=== PATIENT | male | born 1965 | race Caucasian/White ===

== ENCOUNTER 2016-08-24 15:51 | Emergency (ER) | payer OTHER ==
[~2016-08-24] VITALS: Ht 167.6 cm; Wt 84.0 kg
[~2016-08-24 15:51] MED LIST: OMEP20TA39 PO
[2016-08-24 15:57] VITALS: BP 118/78; PULSE 94; RESP 16; TEMP 98.4; O2SAT 99
[2016-08-24] MEDS ORDERED: OMEP40CA2 PO (16:19)
[2016-08-24] MEDS ORDERED: DEXAMETHASONE SOD PHOS 20 MG/5 ML VIAL IM ONE (16:45)
[2016-08-24] MEDS ORDERED: KETOROLAC TROMETHAMINE 60 MG/2 ML (IM) VIAL IM ONE (16:45)
--- NOTE | 2016-08-24 16:46 | PD ---
HPI Chief Complaint: Musculoskeletal Complaint Time Seen by Provider: 16:44 Travel History International Travel<30 days: Yes Contact w/Intl Traveler<30days: Yes Name of Country Traveled to: [place] Traveled to known affect area: No History of Present Illness HPI 51-year-old male presents the emergency department with 3 week history of progressively worsening right shoulder pain and stiffness. Patient denies any specific injury. Patient is a retired [employer]. Patient denies numbness, tingling, neck pain, or weakness in the right hand or wrist. Patient has been trying ibuprofen without much improvement. He states now the pain is 8 /10 especially with any movement. He describes it as sharp achy pain. He has no known drug allergies. PFSH Past Medical History Arthritis: Yes Autoimmune Disease: No Blood Disorders: No Cancer: No Cardiovascular Problems: No Diabetes: No Endocrine: No Gastrointestinal Disorders: Yes (reflux and ulcerative colitis) GERD: Yes Genitourinary: No Headaches: Yes Hepatitis: No Hiatal Hernia: No Immune Disorder: No Musculoskeletal: Yes (fusion surgeries in the neck) Neurologic: No Psychiatric: No Reproductive: No Respiratory: No Thyroid Disease: No Ulcer: Yes Past Surgical History AICD: No Body Medical Devices: left knee and neck Pacemaker: No Other Surgery: Yes Social History Alcohol Use: No Tobacco Use: No Substance Use: No Allergies-Medications (Allergen,Severity, Reaction): Coded Allergies: No Known Allergies (Verified , 08/24/16) Reported Meds & Prescriptions Reported Meds & Active Scripts Active Reported Omeprazole 40 Mg Cap 40 Mg PO BID Review of Systems Except as stated in HPI: all other systems reviewed are Neg General / Constitutional: No: Fever Eyes: No: Visual changes HENT: No: Headaches Cardiovascular: No: Chest Pain or Discomfort Respiratory: No: Shortness of Breath Gastrointestinal: No: Abdominal Pain Genitourinary: No: Dysuria Musculoskeletal: Positive: Arthralgias, Limited ROM, Pain (see history of present illness) Skin: No Rash Neurologic: No: Weakness Psychiatric: No: Depression Endocrine: No: Polydipsia Hematologic/Lymphatic: No: Easy Bruising Physical Exam Narrative GENERAL: Patient is in mild to moderate distress. SKIN: Warm and dry. Normal color. Normal turgor. No signs trauma. Rash. HEAD: Atraumatic. Normocephalic. EYES: Pupils equal and round. No scleral icterus. No injection or drainage. ENT: No nasal bleeding or discharge. Mucous membranes pink and moist. Pharynx is clear. NECK: Trachea midline. No JVD. Supple nontender. CARDIOVASCULAR: Regular rate and rhythm. RESPIRATORY: No accessory muscle use. Clear to auscultation. Breath sounds equal bilaterally. MUSCULOSKELETAL: Extremities without clubbing, cyanosis, or edema. No obvious deformities. Patient has pain with palpation along both anterior and posterior right shoulder, as well as significant guarding and decreased range of motion secondary to pain. Strength appears to be intact although limited by pain. No significant effusion or signs of dislocation noted. NEUROLOGICAL: Awake and alert. No obvious cranial nerve deficits. Motor grossly within normal limits. Five out of 5 muscle strength in the arms and legs. Normal speech. PSYCHIATRIC: Appropriate mood and affect; insight and judgment normal. Data Data Last Documented VS Vital Signs Date Time Temp Pulse Resp B/P Pulse Ox O2 Delivery O2 Flow Rate FiO2 08/24/16 15:57 98.4 94 16 118/78 99 Orders Ketorolac Inj (Toradol Inj) (08/24/16 16:45) Dexamethasone Inj (Decadron Inj) (08/24/16 16:45) MDM Medical Decision Making Medical Screen Exam Complete: Yes Emergency Medical Condition: Yes Differential Diagnosis Right shoulder pain. Rotator cuff tendinitis. Bursitis. Narrative Course Patient is medically stable at time of exam. Radiographic Imaging is not felt to be necessary based on the patient's history and physical at this time. Patient is given 10 mg Decadron IV and as well as 60 mg Toradol IM. Patient is to continue with prednisone taper pack over the next 2 weeks. Patient can take Tylenol as needed for pain. Patient is to ice this area frequently as discussed. Patient should follow with orthopedic if symptoms do not improve or worsen in the next week. Diagnosis Primary Impression: Right rotator cuff tendonitis Referrals: Jon Mccord MD as needed Patient Instructions: General Instructions, Rotator Cuff Tendinitis (ED), Shoulder Bursitis (ED) Additional Instructions: Radiographic Imaging is not felt to be necessary based on the patient's history and physical at this time. Patient is given 10 mg Decadron IV and as well as 60 mg Toradol IM. Patient is to continue with prednisone taper pack over the next 2 weeks. Patient can take Tylenol as needed for pain. Patient is to ice this area frequently as discussed. Patient should follow with orthopedic if symptoms do not improve or worsen in the next week. Disposition: 01 DISCHARGE HOME Condition: Stable Todd Polo Aug 24, 2016 16:46
[2016-08-24] MEDS ORDERED: PRED10PA2 PO (17:08)
== END 2016-08-24 17:17 | disposition home or self-care (01) ==
LOC: PHEFT 15:51
DX: M75.51 Bursitis of right shoulder (principal)
CPT/HCPCS: 96372; 99283; J1100; J1885